=== PATIENT | male | born 1990 | race Caucasian/White ===

== ENCOUNTER 2016-12-12 21:10 | Emergency (ER) | payer SELFPAY ==
--- NOTE | 2016-12-12 22:43 | ED CLINICAL REPORT ---
Clinical Report - Physicians/Mid Levels [facility] [address] [place] [address] 12/12/2016 21:13 Patient: VILMA HARPER V Time Seen: 21:25; initial patient contact. Arrived- By private vehicle. Historian- patient. HISTORY OF PRESENT ILLNESS Chief Complaint: "FLU", FEVER, COUGH and MUSCLE ACHES. This started yesterday and is still present (persistent). It was gradual in onset. The patient has had nausea, a cough, sinus drainage, nasal congestion and fever. He has had chills, muscle aches and a headache and nasal discharge. No skin rash, sore throat, difficulty breathing or chest discomfort or chest pain. No vomiting, diarrhea or sputum production. The patient has had contact with a sick individual. Similar symptoms previously: None. Recent medical care: Not recently seen/assessed. REVIEW OF SYSTEMS The patient has had fatigue and sinus pain. No photophobia or abdominal pain. All systems otherwise negative, except as recorded above. PAST HISTORY Negative. Problems: no known problems. Surgeries: No history of previous surgery. Additional Surgeries: no known surgeries. Medications: None. Allergies: No Known Drug Allergy. SOCIAL HISTORY Current every day smoker. History of drug use: marijuana. No alcohol use. ADDITIONAL NOTES The nursing notes have been reviewed with agreement regarding the chief complaint, PMH and patient medications and allergies. PHYSICAL EXAM Vital Signs: 12/12/2016 21:23 BP: 126/74. HR: 99. RR: 20. O2 saturation: 99%. Temp: 98.4 F. Have been reviewed as normal. Appearance: Alert. No acute distress. Head: Tenderness present to percussion/palpation of the sinuses. Eyes: Eyes normal inspection. ENT: Mild generalized pharyngeal erythema. Neck: No meningeal signs or lymphadenopathy. CVS: Normal heart rate and rhythm. Heart sounds normal. Respiratory: No respiratory distress. Breath sounds normal. Abdomen: Soft and nontender. No organomegaly. Skin: Normal skin color. No rash. Neuro: Oriented X 3. LABS, X-RAYS, AND EKG Laboratory Tests: Rapid Influenza Screen: (DAWIT: 12/12/2016 21:30) ( MsgRcvd 12/12/2016 22:34) Final results SPECIMEN DESCRIPTION: NASAL Test Result Flag Units (Reference) RAPID INFLUENZA SCREEN CALLED TO: GEOFFREY -- DATE: 12/12/16 INFLUENZA A: POSITIVE SCREEN FOR INFLUENZA A INFLUENZA B: NEGATIVE SCREEN FOR INFLUENZA B . PROGRESS AND PROCEDURES Course of Care: 12/12/2016 21:23 BP: 126/74. HR: 99. RR: 20. O2 saturation: 99%. Temp: 98.4 F. Vital Signs: have been reviewed as normal. Zofran 4 mg ODT PO given. Symptoms much better. Disposition: Discharged home in good and improved condition. Condition: good. CLINICAL IMPRESSION Influenza type A with upper respiratory infection. INSTRUCTIONS Do not work tomorrow. Prescription Medications: Zofran (orally disintegrating tablets) 4 mg: take 1 orally every 6 hours as needed for nausea and vomiting. Dispense ten (10). No refill. Substitution is permissible. Tamiflu 75 mg: take 1 capsule orally every 12 hours for 5 days. No refill. Substitution is permissible. Follow-up: Follow up with your doctor if not better. Call for an appointment. Screening today revealed the patient's blood pressure to be in the pre-hypertensive range. The patient should follow up with a primary care provider for blood pressure management. (Electronically signed by Scott Allen Dr. 12/12/2016 22:45)
--- NOTE | 2016-12-12 22:43 | ED ORDER SUMMARY ---
..... Patient: VILMA HARPER V OrderSheet [facility] VisitID: [id number] [address] [place] [address] 26y, M Registration Date/Time: 12/12/2016 ORDER SHEET Weight: 58.9 kg (stated) Allergies: No Known Drug Allergy GENERAL ORDERS: Rapid Influenza Screen (Nasal Pharyngeal) (nasal) Urgent (21:29 12/12/2016 Shahriare R.N. per protocol) (Ack 21:29 LMuller) (21:30 LMuller) MEDICATION ORDERS: Zofran ODT PO 4 mg (NOW) (21:35 12/12/2016 Benjamín Ye) (22:07 SRoberdeborah R.N.) - (Tamiflu 75 mg PO x 1 now) (22:36 12/12/2016 Benjamín Ye) (22:47 [facility]) IV FLUIDS: ORDER SHEET NOTES: [Electronically signed by Scott Allen Dr. (22:45 12/12/2016)] [Electronically signed by Chana Whittington (23:02 12/12/2016)] [Electronically locked/signed by Chana Whittington (23:02 12/12/2016)]
--- NOTE | 2016-12-12 22:43 | ED ORDER SUMMARY ---
..... Patient: VILMA HARPER V OrderSheet [facility] VisitID: [id number] [address] [place] [address] 26y, M Registration Date/Time: 12/12/2016 ORDER SHEET Weight: 58.9 kg (stated) Allergies: No Known Drug Allergy GENERAL ORDERS: Rapid Influenza Screen (Nasal Pharyngeal) (nasal) Urgent (21:29 12/12/2016 Shahriare R.N. per protocol) (Ack 21:29 LMuller) (21:30 LMuller) MEDICATION ORDERS: Zofran ODT PO 4 mg (NOW) (21:35 12/12/2016 Benjamín Ye) (22:07 SRoberdeborah R.N.) - (Tamiflu 75 mg PO x 1 now) (22:36 12/12/2016 Benjamín Ye) (22:47 [facility]) IV FLUIDS: ORDER SHEET NOTES: [Electronically signed by Scott Allen Dr. (22:45 12/12/2016)] [Electronically signed by Chana Whittington (23:02 12/12/2016)] [Electronically locked/signed by Chana Whittington (23:02 12/12/2016)]
--- NOTE | 2016-12-12 22:43 | ED NURSING NOTES ---
Clinical Report - Nurses [facility] [address] [place] [address] 12/12/2016 21:13 Patient: VILMA HARPER V TRIAGE Triage time 21:23 Dec 12 2016. Acuity: LEVEL 4. Chief Complaint: FEVER and BODY ACHES. Alert. No acute distress. --21:26 Cindy Lua R.N. 21:23 12/12/16. BP: 126/74. HR: 99. RR: 20. O2 saturation: 99%. Temp: 98.4 F. Pain level now 8/10. --21:26 Cindy Lua R.N. Weight: 58.9 kg stated. Height/Length: 66 inches Per Patient. BMI: 21. --21:22 Cindy Lua R.N. Medications None. --21:24 Cindy Lua R.N. Medication/allergy information source: the patient. --21:26 Cindy Lua R.N. Allergies No Known Drug Allergy. --21:25 Cindy Lua R.N. History Arrived by private vehicle. Historian: patient. Primary physician (Abiodun). ( 2 days of Fever and Body Aches, taking Tylenol.). Onset. (2 days). He has had contact with a sick individual. He has had chills and a headache. 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 PAST MEDICAL HX: Negative. Has not received seasonal influenza immunization. SURGERY HX: No history of previous surgery. SOCIAL HX: Current every day light tobacco smoker (cigarette)- less than 1/2 a pack per day. History of drug use: marijuana. No alcohol use. No recent travel. He has had contact with a sick individual. (people at work). No infectious disease exposure. FALL RISK ASSESSMENT: Fall risk assessment completed. No fall risk identified. NUTRITIONAL RISK ASSESSMENT: The nutritional risk assessment revealed no deficiencies. FUNCTIONAL ASSESSMENT: Functional assessment: no impairments noted. LEARNING NEEDS ASSESSMENT: The learning needs assessment revealed no barriers. SKIN INTEGRITY ASSESSMENT: Skin integrity risk assessment completed. No skin integrity risk identified. --21: Cindy Lua R.N. Interventions ID band on patient. To room. --21: Cindy Lua R.N. NURSING PROGRESS NOTES Flu swab obtained by RN via nasal swab. Labeled in the presence of the patient and sent to lab. --21:28 Cindy Lua R.N. Patient ready for evaluation- ED physician notified. --21:28 Cindy Lua R.N. Care transferred and report given (LUIS FERNANDO Dillard). --21:34 Cindy Lua R.N. 21:40 12/12/2016 Zofran ODT (Ondansetron) PO 4 mg given. Allergies verified and confirmed 5 rights. --22:07 Gilma Moeller R.N. 22:47 12/12/2016 Tamiflu PO 75 mg given. Allergies verified and confirmed 5 rights. --22:47 Chana Whittington. DISPOSITION / DISCHARGE Departure time: 2250. Condition at departure: unchanged and stable. No learning barriers present. Discharge instructions provided and reviewed with the patient. Reviewed medication(s). Patient verbalized understanding. Written instructions provided in Bermudian. The patient was discharged by the physician. He was discharged home and accompanied by family. He left the Emergency Department ambulatory and via private vehicle. Spouse driving. --23:02 Chana Whittington. Locked/Released at 12/12/2016 23:02 by Chana Whittington,
--- NOTE | 2016-12-12 22:43 | ED NURSING NOTES ---
Clinical Report - Nurses [facility] [address] [place] [address] 12/12/2016 21:13 Patient: VILMA HARPER V TRIAGE Triage time 21:23 Dec 12 2016. Acuity: LEVEL 4. Chief Complaint: FEVER and BODY ACHES. Alert. No acute distress. --21:26 Cindy Lua R.N. 21:23 12/12/16. BP: 126/74. HR: 99. RR: 20. O2 saturation: 99%. Temp: 98.4 F. Pain level now 8/10. --21:26 Cindy Lua R.N. Weight: 58.9 kg stated. Height/Length: 66 inches Per Patient. BMI: 21. --21:22 Cindy Lua R.N. Medications None. --21:24 Cindy Lua R.N. Medication/allergy information source: the patient. --21:26 Cindy Lua R.N. Allergies No Known Drug Allergy. --21:25 Cindy Lua R.N. History Arrived by private vehicle. Historian: patient. Primary physician (Abiodun). ( 2 days of Fever and Body Aches, taking Tylenol.). Onset. (2 days). He has had contact with a sick individual. He has had chills and a headache. 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 PAST MEDICAL HX: Negative. Has not received seasonal influenza immunization. SURGERY HX: No history of previous surgery. SOCIAL HX: Current every day light tobacco smoker (cigarette)- less than 1/2 a pack per day. History of drug use: marijuana. No alcohol use. No recent travel. He has had contact with a sick individual. (people at work). No infectious disease exposure. FALL RISK ASSESSMENT: Fall risk assessment completed. No fall risk identified. NUTRITIONAL RISK ASSESSMENT: The nutritional risk assessment revealed no deficiencies. FUNCTIONAL ASSESSMENT: Functional assessment: no impairments noted. LEARNING NEEDS ASSESSMENT: The learning needs assessment revealed no barriers. SKIN INTEGRITY ASSESSMENT: Skin integrity risk assessment completed. No skin integrity risk identified. --21: Cindy Lua R.N. Interventions ID band on patient. To room. --21: Cindy Lua R.N. NURSING PROGRESS NOTES Flu swab obtained by RN via nasal swab. Labeled in the presence of the patient and sent to lab. --21:28 Cindy uLa R.N. Patient ready for evaluation- ED physician notified. --21:28 Cindy Lua R.N. Care transferred and report given (LUIS FERNANDO Dillard). --21:34 Cindy Lua R.N. 21:40 12/12/2016 Zofran ODT (Ondansetron) PO 4 mg given. Allergies verified and confirmed 5 rights. --22:07 Gilma Moeller R.N. 22:47 12/12/2016 Tamiflu PO 75 mg given. Allergies verified and confirmed 5 rights. --22:47 Chana Whittington. DISPOSITION / DISCHARGE Departure time: 2250. Condition at departure: unchanged and stable. No learning barriers present. Discharge instructions provided and reviewed with the patient. Reviewed medication(s). Patient verbalized understanding. Written instructions provided in Turkish. The patient was discharged by the physician. He was discharged home and accompanied by family. He left the Emergency Department ambulatory and via private vehicle. Spouse driving. --23:02 Chana Whittington. Locked/Released at 12/12/2016 23:02 by Chana Whittington,
--- NOTE | 2016-12-12 23:03 | ED MAR SUMMARY ---
..... Medication Administration Record [facility] [address] [place] [address] Patient: VILMA HARPER V Visit ID: [id number] 26y, M Weight: 58.9 kg Height/Length: 66 in BMI: 21 ALLERGIES: No Known Drug Allergy Given 21:40 12/12/2016 Gilma Moeller R.N. Medication Administered: ZOFRAN ODT [PO] (ONDANSETRON), Dose: 4 mg PO. Medication Ordered: Zofran ODT PO 4 mg (NOW). Given 22:47 12/12/2016 Chana Whittington, Medication Administered: TAMIFLU [PO], Dose: 75 mg PO. Medication Ordered: - (Tamiflu 75 mg PO x 1 now).
--- NOTE | 2016-12-12 23:03 | ED DISCHARGE INSTRUCTIONS ---
Patient: VILMA HARPER V General Instructions [facility] VisitID: [id number] [place] [address] 26y, M Registration Date/Time: 12/12/2016 Influenza type A with upper respiratory infection. INSTRUCTIONS Do not work tomorrow. Prescription Medications: Zofran (orally disintegrating tablets) 4 mg: take 1 orally every 6 hours as needed for nausea and vomiting. Dispense ten (10). No refill. Substitution is permissible. Tamiflu 75 mg: take 1 capsule orally every 12 hours for 5 days. No refill. Substitution is permissible. Follow-up: Follow up with your doctor if not better. Call for an appointment. Screening today revealed the patient's blood pressure to be in the pre-hypertensive range. The patient should follow up with a primary care provider for blood pressure management. ADDITIONAL INFORMATION Influenza (Adult) Influenza, also called the flu, is a viral illness that affects the air passages of the lungs. It differs from the common cold. It is highly contagious. It may be spread through the air by coughing and sneezing or by direct contact (touching the sick person and then touching your own eyes, nose or mouth). Illness starts 1-3 days after exposure and lasts for 1-2 weeks. Antibiotics are usually not needed unless a complication appears (ear or sinus infection or pneumonia). Symptoms may be mild or severe and can include extreme tiredness (wanting to stay in bed all day), chills, fevers, muscle aching, soreness with eye movement, headache, and a dry, hacking cough. Home Care: Avoid exposure to cigarette smoke (yours or others). Tylenol or ibuprofen (Advil) will help fever, muscle aching, and headache. To avoid risk of liver injury, aspirin should not be used in children and teenagers under 18 with this illness. Nausea and loss of appetite are common. A light diet is recommended. Avoid dehydration by drinking 6-8 glasses of fluids per day (water, sport drinks like Gatorade, soft drinks without caffeine, juices, tea, soup, etc.). Extra fluids will also help loosen secretions in the nose and lungs. Paqu-mus-uttwzcv cold medicines will not shorten the duration of the illness but may be helpful for the following symptoms: cough (Robitussin DM); sore throat (Chloraseptic lozenges or spray); nasal and sinus congestion (Actifed or Sudafed). [NOTE: Do not use decongestants if you have high blood pressure.] Stay home until your fever has been gone for at least 24 hours (without the use of fever-reducing medications such as ibuprofen). Follow Up with your doctor or as directed by our staff if you are not improving over the next week. Note: If you are age 65 or older, or if you have chronic asthma or COPD, we recommend a pneumococcal vaccinationevery five years. All adults shouldreceive a yearly influenza vaccination every . Ask your doctor about this. Get Prompt Medical Attention if any of the following occur: Cough with lots of colored sputum (mucus) or blood in your sputum Chest pain, shortness of breath, wheezing, or difficulty breathing Severe headache, face, neck or ear pain New rash Fever of 100.4F (38C) oral or higher, not better with fever medication Confusion, behavior change or seizure Severe weakness or dizziness Ondansetron Oral disintegrating tablet What is this medicine? ONDANSETRON (on ESA se anthony) is used to treat nausea and vomiting caused by chemotherapy. It is also used to prevent or treat nausea and vomiting after surgery. How should I use this medicine? These tablets are made to dissolve in the mouth. Do not try to push the tablet through the foil backing. With dry hands, peel away the foil backing and gently remove the tablet. Place the tablet in the mouth and allow it to dissolve, then swallow. While you may take these tablets with water, it is not necessary to do so. Talk to your nuclear supervising operator regarding the use of this medicine in children. Special care may be needed. What side effects may I notice from receiving this medicine? Side effects that you should report to your doctor or health acute care nurse as soon as possible: allergic reactions like skin rash, itching or hives, swelling of the face, lips, or tongue breathing problems dizziness fast or irregular heartbeat feeling faint or lightheaded, falls fever and chills swelling of the hands and feet tightness in the chest Side effects that usually do not require medical attention (report to your doctor or health acute care nurse if they continue or are bothersome): constipation or diarrhea headache What may interact with this medicine? Do not take this medicine with any of the following medications: -apomorphine -cisapride -dofetilide -dronedarone -pimozide -thioridazine -ziprasidone This medicine may also interact with the following medications: -carbamazepine -phenytoin -rifampicin -tramadol -other medicines that prolong the QT interval (cause an abnormal heart rhythm) What if I miss a dose? If you miss a dose, take it as soon as you can. If it is almost time for your next dose, take only that dose. Do not take double or extra doses. Where should I keep my medicine? Keep out of the reach of children. Store between 2 and 30 degrees C (36 and 86 degrees F). Throw away any unused medicine after the expiration date. What should I tell my health care provider before I take this medicine? They need to know if you have any of these conditions: heart disease history of irregular heartbeat liver disease low levels of magnesium or potassium in the blood an unusual or allergic reaction to ondansetron, granisetron, other medicines, foods, dyes, or preservatives or trying to get breast-feeding What should I watch for while using this medicine? Check with your doctor or health acute care nurse as soon as you can if you have any sign of an allergic reaction. Oseltamivir Phosphate Oral capsule What is this medicine? OSELTAMIVIR (os el CHAVIRA i vir) is an antiviral medicine. It is used to prevent and to treat some kinds of influenza or the flu. It will not work for colds or other viral infections. How should I use this medicine? Take this medicine by mouth with a glass of water. Follow the directions on the prescription label. Start this medicine at the first sign of flu symptoms. You can take it with or without food. If it upsets your stomach, take it with food. Take your medicine at regular intervals. Do not take your medicine more often than directed. Take all of your medicine as directed even if you think you are better. Do not skip doses or stop your medicine early. Talk to your nuclear supervising operator regarding the use of this medicine in children. While this drug may be prescribed for children as young as 14 days for selected conditions, precautions do apply. What side effects may I notice from receiving this medicine? Side effects that you should report to your doctor or health acute care nurse as soon as possible: allergic reactions like skin rash, itching or hives, swelling of the face, lips, or tongue anxiety, confusion, unusual behavior breathing problems hallucination, loss of contact with reality redness, blistering, peeling or loosening of the skin, including inside the mouth seizures Side effects that usually do not require medical attention (report to your doctor or health acute care nurse if they continue or are bothersome): cough diarrhea dizziness headache nausea, vomiting stomach pain What may interact with this medicine? Interactions are not expected. What if I miss a dose? If you miss a dose, take it as soon as you remember. If it is almost time for your next dose (within 2 hours), take only that dose. Do not take double or extra doses. Where should I keep my medicine? Keep out of the reach of children. Store at room temperature between 15 and 30 degrees C (59 and 86 degrees F). Throw away any unused medicine after the expiration date. What should I tell my health care provider before I take this medicine? They need to know if you have any of the following conditions: heart disease immune system problems kidney disease liver disease lung disease an unusual or allergic reaction to oseltamivir, other medicines, foods, dyes, or preservatives or trying to get breast-feeding What should I watch for while using this medicine? Visit your doctor or health acute care nurse for regular check ups. Tell your doctor if your symptoms do not start to get better or if they get worse. If you have the flu, you may be at an increased risk of developing seizures, confusion, or abnormal behavior. This occurs early in the illness, and more frequently in children and teens. These events are not common, but may result in accidental injury to the patient. Families and caregivers of patients should watch for signs of unusual behavior and contact a doctor or health acute care nurse right away if the patient shows signs of unusual behavior. This medicine is not a substitute for the flu shot. Talk to your doctor each year about an annual flu shot. You have been given the following additional information: Influenza (Adult) Ondansetron Oral disintegrating tablet Oseltamivir Phosphate Oral capsule Do not work tomorrow. (Electronically signed by Scott Allen Dr. 12/12/2016 22:45)
--- NOTE | 2016-12-12 23:03 | ED MED RECONCILIATION SUMMARY ---
Patient: VILMA HARPER V Medication Reconciliation Report [facility] VisitID: [id number] [address] [place] [address] 26y, M Registration Date/Time: 12/12/2016 Weight: 58.9 kg Height/Length: 66 in. BMI: 21.0 ALLERGIES: No Known Drug Allergy The patient's Home Medications are listed below: NONE. The source(s) of the original Home Medication information: patient The following Medications were given to the patient in the Emergency Department: Zofran ODT [PO] PO 4 mg, administered: 12/12/2016 9:40:00 PM Tamiflu [PO] PO 75 mg, administered: 12/12/2016 10:47:00 PM The following Medications were prescribed to the patient: Zofran (orally disintegrating tablets) 4 mg: take 1 orally every 6 hours as needed for nausea and vomiting. Dispense ten (10). No refill. Substitution is permissible. -- Scott Allen Dr. Tamiflu 75 mg: take 1 capsule orally every 12 hours for 5 days. No refill. Substitution is permissible. -- Scott Allen Dr.
--- NOTE | 2016-12-12 23:03 | ED MED RECONCILIATION SUMMARY ---
Patient: VILMA HARPER V Medication Reconciliation Report [facility] VisitID: [id number] [address] [place] [address] 26y, M Registration Date/Time: 12/12/2016 Weight: 58.9 kg Height/Length: 66 in. BMI: 21.0 ALLERGIES: No Known Drug Allergy The patient's Home Medications are listed below: NONE. The source(s) of the original Home Medication information: patient The following Medications were given to the patient in the Emergency Department: Zofran ODT [PO] PO 4 mg, administered: 12/12/2016 9:40:00 PM Tamiflu [PO] PO 75 mg, administered: 12/12/2016 10:47:00 PM The following Medications were prescribed to the patient: Zofran (orally disintegrating tablets) 4 mg: take 1 orally every 6 hours as needed for nausea and vomiting. Dispense ten (10). No refill. Substitution is permissible. -- Scott Allen Dr. Tamiflu 75 mg: take 1 capsule orally every 12 hours for 5 days. No refill. Substitution is permissible. -- Scott Allen Dr.
--- NOTE | 2016-12-12 23:03 | ED MAR SUMMARY ---
..... Medication Administration Record [facility] [address] [place] [address] Patient: VILMA HARPER V Visit ID: [id number] 26y, M Weight: 58.9 kg Height/Length: 66 in BMI: 21 ALLERGIES: No Known Drug Allergy Given 21:40 12/12/2016 Gilma Moeller R.N. Medication Administered: ZOFRAN ODT [PO] (ONDANSETRON), Dose: 4 mg PO. Medication Ordered: Zofran ODT PO 4 mg (NOW). Given 22:47 12/12/2016 Chana Whittington, Medication Administered: TAMIFLU [PO], Dose: 75 mg PO. Medication Ordered: - (Tamiflu 75 mg PO x 1 now).
--- NOTE | 2016-12-12 23:03 | ED DISCHARGE INSTRUCTIONS ---
Patient: VILMA HARPER V General Instructions [facility] VisitID: [id number] [place] [address] 26y, M Registration Date/Time: 12/12/2016 Influenza type A with upper respiratory infection. INSTRUCTIONS Do not work tomorrow. Prescription Medications: Zofran (orally disintegrating tablets) 4 mg: take 1 orally every 6 hours as needed for nausea and vomiting. Dispense ten (10). No refill. Substitution is permissible. Tamiflu 75 mg: take 1 capsule orally every 12 hours for 5 days. No refill. Substitution is permissible. Follow-up: Follow up with your doctor if not better. Call for an appointment. Screening today revealed the patient's blood pressure to be in the pre-hypertensive range. The patient should follow up with a primary care provider for blood pressure management. ADDITIONAL INFORMATION Influenza (Adult) Influenza, also called the flu, is a viral illness that affects the air passages of the lungs. It differs from the common cold. It is highly contagious. It may be spread through the air by coughing and sneezing or by direct contact (touching the sick person and then touching your own eyes, nose or mouth). Illness starts 1-3 days after exposure and lasts for 1-2 weeks. Antibiotics are usually not needed unless a complication appears (ear or sinus infection or pneumonia). Symptoms may be mild or severe and can include extreme tiredness (wanting to stay in bed all day), chills, fevers, muscle aching, soreness with eye movement, headache, and a dry, hacking cough. Home Care: Avoid exposure to cigarette smoke (yours or others). Tylenol or ibuprofen (Advil) will help fever, muscle aching, and headache. To avoid risk of liver injury, aspirin should not be used in children and teenagers under 18 with this illness. Nausea and loss of appetite are common. A light diet is recommended. Avoid dehydration by drinking 6-8 glasses of fluids per day (water, sport drinks like Gatorade, soft drinks without caffeine, juices, tea, soup, etc.). Extra fluids will also help loosen secretions in the nose and lungs. Woke-qwj-tcttlor cold medicines will not shorten the duration of the illness but may be helpful for the following symptoms: cough (Robitussin DM); sore throat (Chloraseptic lozenges or spray); nasal and sinus congestion (Actifed or Sudafed). [NOTE: Do not use decongestants if you have high blood pressure.] Stay home until your fever has been gone for at least 24 hours (without the use of fever-reducing medications such as ibuprofen). Follow Up with your doctor or as directed by our staff if you are not improving over the next week. Note: If you are age 65 or older, or if you have chronic asthma or COPD, we recommend a pneumococcal vaccinationevery five years. All adults shouldreceive a yearly influenza vaccination every . Ask your doctor about this. Get Prompt Medical Attention if any of the following occur: Cough with lots of colored sputum (mucus) or blood in your sputum Chest pain, shortness of breath, wheezing, or difficulty breathing Severe headache, face, neck or ear pain New rash Fever of 100.4F (38C) oral or higher, not better with fever medication Confusion, behavior change or seizure Severe weakness or dizziness Ondansetron Oral disintegrating tablet What is this medicine? ONDANSETRON (on ESA se anthony) is used to treat nausea and vomiting caused by chemotherapy. It is also used to prevent or treat nausea and vomiting after surgery. How should I use this medicine? These tablets are made to dissolve in the mouth. Do not try to push the tablet through the foil backing. With dry hands, peel away the foil backing and gently remove the tablet. Place the tablet in the mouth and allow it to dissolve, then swallow. While you may take these tablets with water, it is not necessary to do so. Talk to your jewel sawyer regarding the use of this medicine in children. Special care may be needed. What side effects may I notice from receiving this medicine? Side effects that you should report to your doctor or health neonatal intensive care nurse as soon as possible: allergic reactions like skin rash, itching or hives, swelling of the face, lips, or tongue breathing problems dizziness fast or irregular heartbeat feeling faint or lightheaded, falls fever and chills swelling of the hands and feet tightness in the chest Side effects that usually do not require medical attention (report to your doctor or health neonatal intensive care nurse if they continue or are bothersome): constipation or diarrhea headache What may interact with this medicine? Do not take this medicine with any of the following medications: -apomorphine -cisapride -dofetilide -dronedarone -pimozide -thioridazine -ziprasidone This medicine may also interact with the following medications: -carbamazepine -phenytoin -rifampicin -tramadol -other medicines that prolong the QT interval (cause an abnormal heart rhythm) What if I miss a dose? If you miss a dose, take it as soon as you can. If it is almost time for your next dose, take only that dose. Do not take double or extra doses. Where should I keep my medicine? Keep out of the reach of children. Store between 2 and 30 degrees C (36 and 86 degrees F). Throw away any unused medicine after the expiration date. What should I tell my health care provider before I take this medicine? They need to know if you have any of these conditions: heart disease history of irregular heartbeat liver disease low levels of magnesium or potassium in the blood an unusual or allergic reaction to ondansetron, granisetron, other medicines, foods, dyes, or preservatives or trying to get breast-feeding What should I watch for while using this medicine? Check with your doctor or health neonatal intensive care nurse as soon as you can if you have any sign of an allergic reaction. Oseltamivir Phosphate Oral capsule What is this medicine? OSELTAMIVIR (os el CHAVIRA i vir) is an antiviral medicine. It is used to prevent and to treat some kinds of influenza or the flu. It will not work for colds or other viral infections. How should I use this medicine? Take this medicine by mouth with a glass of water. Follow the directions on the prescription label. Start this medicine at the first sign of flu symptoms. You can take it with or without food. If it upsets your stomach, take it with food. Take your medicine at regular intervals. Do not take your medicine more often than directed. Take all of your medicine as directed even if you think you are better. Do not skip doses or stop your medicine early. Talk to your jewel sawyer regarding the use of this medicine in children. While this drug may be prescribed for children as young as 14 days for selected conditions, precautions do apply. What side effects may I notice from receiving this medicine? Side effects that you should report to your doctor or health neonatal intensive care nurse as soon as possible: allergic reactions like skin rash, itching or hives, swelling of the face, lips, or tongue anxiety, confusion, unusual behavior breathing problems hallucination, loss of contact with reality redness, blistering, peeling or loosening of the skin, including inside the mouth seizures Side effects that usually do not require medical attention (report to your doctor or health neonatal intensive care nurse if they continue or are bothersome): cough diarrhea dizziness headache nausea, vomiting stomach pain What may interact with this medicine? Interactions are not expected. What if I miss a dose? If you miss a dose, take it as soon as you remember. If it is almost time for your next dose (within 2 hours), take only that dose. Do not take double or extra doses. Where should I keep my medicine? Keep out of the reach of children. Store at room temperature between 15 and 30 degrees C (59 and 86 degrees F). Throw away any unused medicine after the expiration date. What should I tell my health care provider before I take this medicine? They need to know if you have any of the following conditions: heart disease immune system problems kidney disease liver disease lung disease an unusual or allergic reaction to oseltamivir, other medicines, foods, dyes, or preservatives or trying to get breast-feeding What should I watch for while using this medicine? Visit your doctor or health neonatal intensive care nurse for regular check ups. Tell your doctor if your symptoms do not start to get better or if they get worse. If you have the flu, you may be at an increased risk of developing seizures, confusion, or abnormal behavior. This occurs early in the illness, and more frequently in children and teens. These events are not common, but may result in accidental injury to the patient. Families and caregivers of patients should watch for signs of unusual behavior and contact a doctor or health neonatal intensive care nurse right away if the patient shows signs of unusual behavior. This medicine is not a substitute for the flu shot. Talk to your doctor each year about an annual flu shot. You have been given the following additional information: Influenza (Adult) Ondansetron Oral disintegrating tablet Oseltamivir Phosphate Oral capsule Do not work tomorrow. (Electronically signed by Scott Allen Dr. 12/12/2016 22:45)
== END 2016-12-12 22:53 | disposition home or self-care (01) ==
LOC: ED SRH 21:10
DX: J10.1 Influenza due to other identified influenza virus with other respiratory manifestations (principal); F17.210 Nicotine dependence, cigarettes, uncomplicated
CPT/HCPCS: 91400